=== PATIENT | female | born 1995 | race Caucasian/White ===

== ENCOUNTER 2017-03-15 00:32 | Emergency (ER) | payer OTHER ==
--- NOTE | 2017-03-15 00:59 | ED Physician Documentation ---
PD HPI BACK PAIN - Stated complaint Stated Complaint: BACK PAIN - Chief complaint Chief Complaint: Back Pain - History obtained from History obtained from: Patient - History of Present Illness Timing - onset: Other (tonight, few hours [employer]) Timing - duration: Hours Timing - details: Abrupt onset, Waxing and waning Pain level now: 10 Location: Mid, Right, Left Quality: Pain, Similar to prior episodes Associated symptoms: No: Fever, Weakness, Numbness Improves with: Nothing Worsened by: Other (no apparent exacerbating factors) Similar symptoms before: No diagnosis (similar but milder and briefer episodes over past 2-3 months. Was evaluated in an ED in [facility] approximately 2 months ago, had back xrays and prescribed flexeril.) Recently seen: Not recently seen Review of Systems Constitutional: denies: Fever Cardiac: reports: Reviewed and negative Respiratory: reports: Reviewed and negative GI: reports: Nausea, Vomiting. denies: Abdominal Pain : denies: Dysuria, Frequency Musculoskeletal: reports: Back pain PD PAST MEDICAL HISTORY - Past Medical History Past Medical History: Yes Musculoskeletal: Chronic back pain - Past Surgical History Past Surgical History: Yes - Present Medications Home Medications: Ambulatory Orders Medication Instructions Recorded Confirmed Bcp 03/15/17 Cyclobenzaprine [Flexeril] 1 tab PO DAILY 03/15/17 03/15/17 Multivitamin [Multivitamins] 1 cap PO DAILY 03/15/17 03/15/17 - Allergies Allergies/Adverse Reactions: Allergies Allergy/AdvReac Type Severity Reaction Status Date / Time Penicillins Allergy Unknown Verified 03/15/17 00:47 ibuprofen [From Advil] AdvReac Nausea Verified 03/15/17 00:47 - Social History Does the pt smoke?: No Smoking Status: Never smoker Does the pt drink ETOH?: No Does the pt have substance abuse?: No - Immunizations Immunizations are current?: Yes - POLST Patient has POLST: No PD ED PE NORMAL - Vitals Vital signs reviewed: Yes - General General: Alert and oriented X 3, No acute distress, Well developed/nourished - Cardiac Cardiac: RRR, No murmur - Respiratory Respiratory: No respiratory distress, Clear bilaterally - Abdomen Abdomen: Soft, Non tender, Non distended - Back Back: No CVA TTP - Derm Derm: Normal color, Warm and dry, No rash - Extremities Extremities: No edema Results - Vitals Vitals: Vital Signs - 24 hr 03/15/17 03/15/17 00:35 03:10 Temperature 35.9 C L 36.6 C Heart Rate 68 88 Respiratory 17 16 Rate Blood Pressure 96/62 116/79 O2 Saturation 100 97 Oxygen O2 Source Room air - Labs Labs: Laboratory Tests 03/15/17 03/15/17 03/15/17 01:30 01:30 01:35 WBC 11.0 H RBC 4.16 L Hgb 13.0 Hct 38.3 MCV 92.0 MCH 31.3 H MCHC 34.0 RDW 12.3 Plt Count 352 MPV 7.5 L Neut # 6.8 H Lymph # 3.3 [place] # 0.8 Eos # 0.1 Baso # 0.0 Absolute Nucleated RBC 0.00 Nucleated RBC % 0.0 Sodium 137 Potassium 3.3 L Chloride 104 Carbon Dioxide 23 Anion Gap 10.0 BUN 13 Creatinine 0.6 Estimated GFR (MDRD) 125 Glucose 135 H Calcium 8.8 Total Bilirubin 0.5 AST 80 H ALT 69 H Alkaline Phosphatase 50 Total Protein 7.9 Albumin 3.9 Globulin 4.0 Albumin/Globulin Ratio 1.0 Lipase 34 Urine Color DARK YELLOW Urine Clarity CLEAR Urine pH 6.0 Ur Specific [place] >=1.030 H Urine Protein NEGATIVE Urine Glucose (UA) NEGATIVE Urine Ketones NEGATIVE Urine Occult Blood NEGATIVE Urine Nitrite NEGATIVE Urine Bilirubin NEGATIVE Urine Urobilinogen 0.2 (NORMAL) Ur Leukocyte Esterase NEGATIVE Ur Microscopic Review NOT INDICATED Urine Culture Comments NOT INDICATED Urine HCG, Qual NEGATIVE - Rads (name of study) RUQ US Radiology: Prelim report reviewed, See rad report PD MEDICAL DECISION MAKING - ED course Complexity details: reviewed results, re-evaluated patient, considered differential, d/w patient Departure - Departure Disposition: 01 Home, Self Care Clinical Impression: Biliary colic Condition: Good Instructions: ED Gallstone W Biliary Colic Follow-Up: RAMYA Price [Provider Group] Aung Zavala MD [Provider Admit Priv/Credential] - Discharge Date/Time: 03/15/17 03:11
[2017-03-15 01:35] LABS: BASOPHILS % (AUTO) 0.3 %; EOSINOPHILS # (AUTO) 0.1 10^3/uL (0.0-0.7); EOSINOPHILS % (AUTO) 1.1 %; LYMPHOCYTES # (AUTO) 3.3 10^3/uL (1.5-3.5); LYMPHOCYTES % (AUTO) 29.9 %; MEAN CORPUSCULAR HEMOGLOBIN 31.3 pg (27.0-31.0); MEAN PLATELET VOLUME 7.5 fL (7.9-10.8); MONOCYTES # (AUTO) 0.8 10^3/uL (0.0-1.0); NEUTROPHILS # (AUTO) 6.8 10^3/uL (1.5-6.6); NEUTROPHILS % (AUTO) 61.7 %; PLT - PLATELET COUNT 352 10^3/uL (130-450); RED BLOOD COUNT 4.16 10^6/uL (4.20-5.40); RED CELL DISTRIBUTION WIDTH 12.3 % (12.0-15.0)
[2017-03-15 01:43] LABS: GLUCOSE, URINE (UA) NEGATIVE (NEGATIVE); KETONES,URINE (UA) NEGATIVE (NEGATIVE); LEUKOCYTE ESTERASE, URINE NEGATIVE (NEGATIVE); NITRITE,URINE NEGATIVE (NEGATIVE); OCCULT BLOOD,URINE NEGATIVE (NEGATIVE); PROTEIN,URINE NEGATIVE (NEGATIVE); UROBILINOGEN,URINE 0.2 (NORMAL) E.U./dL (NORMAL)
[2017-03-15 01:46] LABS: ALBUMIN 3.9 g/dL (3.2-5.5); BILIRUBIN,TOTAL 0.5 mg/dL (0.2-1.0); CALCIUM 8.8 mg/dL (8.5-10.3); CREATININE 0.6 mg/dL (0.4-1.0); TOTAL PROTEIN 7.9 g/dL (6.7-8.2)
[2017-03-15 01:47] LABS: BILIRUBIN,URINE NEGATIVE (NEGATIVE); CLARITY,URINE CLEAR (CLEAR); HCG UR QUAL NEGATIVE; ICTOTEST,URINE NEGATIVE
--- NOTE | 2017-03-15 02:30 | Ultrasound Preliminary Report ---
Exam: US ABDOMEN LIMITED IMPRESSION: 1. Mobile 1.6 cm stone in the gallbladder. No definite cholecystitis. 2. No biliary dilatation seen. 3. Enlarged fatty liver. [facility] SITE ID: [id number]
--- NOTE | 2017-03-15 02:30 | Ultrasound Report ---
EXAM: ABDOMEN ULTRASOUND LIMITED, RUQ EXAM DATE: 03/15/2017 02:18 AM. CLINICAL HISTORY: RUQ pain. COMPARISON: None. TECHNIQUE: Real-time scanning was performed with static images obtained. FINDINGS: Liver: Echogenic and heterogeneous. 19.4 cm. Main portal vein flow: Hepatopetal. Gallbladder: Mobile stone in the gallbladder measuring 1.6 cm. Wall thickness is normal at 2 mm. No f ocal tenderness over the gallbladder. Patient had been medicated. Biliary System: CBD measures 4 mm. No intrahepatic or extrahepatic ductal dilatation. Other: Right kidney measures 12.5 cm and appears normal. Pancreas is partially obscured. Visualized p ortions appear normal. IMPRESSION: 1. Mobile 1.6 cm stone in the gallbladder. No definite cholecystitis. 2. No biliary dilatation seen. 3. Enlarged fatty liver. [facility] Referring Provider Line: [phone] SITE ID: [id number]
[2017-03-15 03:11] VITALS: BP 116/79
== END 2017-03-15 03:11 | disposition home or self-care (01) ==
LOC: ED 00:32
DX: K80.20 Calculus of gallbladder without cholecystitis without obstruction (principal); K76.0 Fatty (change of) liver, not elsewhere classified
CPT/HCPCS: 36415; 76705; 80053; 81001; 81003; 81025; 83690; 85025; 87086; 99283

== ENCOUNTER 2017-04-24 07:27 | Day surgery (SDC) | payer OTHER ==
[2017-04-24] MEDS ORDERED: LACTATED RINGERS 1,000 ML IV ONE ×2 (07:37→10:13)
[2017-04-24] MEDS ORDERED: ceFAZolin 2 GM/50 ML 0 GM/0 ML BAG IV ONE (07:46)
[2017-04-24 08:05] LABS: HCG UR QUAL NEGATIVE
[2017-04-24] MEDS ORDERED: CLINDAMYCIN 600 MG/50 ML 50 ML IV ONE (08:26)
[2017-04-24] MEDS ORDERED: LIDOCAINE MPF 1%-EPI 1:200000 30 ML VIAL SUBQ ONE ×2 (09:01)
[2017-04-24] MEDS ORDERED: BUPIVACAINE 0.25% PF 30 ML VIAL SUBQ ONE ×2 (09:01)
[2017-04-24] MEDS ORDERED: DEXAMETHASONE 4 MG/ML VIAL IVP ONE (09:30)
[2017-04-24] MEDS ORDERED: MIDAZOLAM 2 MG/2 ML VIAL IVP ONE (09:30)
[2017-04-24] MEDS ORDERED: fentaNYL 100 MCG/2 ML VIAL IVP ONE (09:30)
[2017-04-24] MEDS ORDERED: LIDOCAINE-MPF 2% 5 ML VIAL IM ONE (09:30)
[2017-04-24] MEDS ORDERED: GLYCOPYRROLATE 1 MG/5 ML VIAL IVP ONE (09:30)
[2017-04-24] MEDS ORDERED: KETOROLAC 30 MG/ML VIAL IVP ONE (09:30)
[2017-04-24] MEDS ORDERED: ONDANSETRON 4 MG/2 ML VIAL IVP ONE (09:30)
[2017-04-24] MEDS ORDERED: ROCURONIUM 50 MG/5 ML VIAL IVP ONE (09:30)
[2017-04-24] MEDS ORDERED: NEOSTIGMINE 1 MG/1 ML 10 ML MDV IVP ONE (09:30)
[2017-04-24] MEDS ORDERED: diphenhydrAMINE INJ 50 MG/ML VIAL IVP ONE (09:30)
[2017-04-24] MEDS ORDERED: ACETAMINOPHEN 1,000 MG/100 ML 100 ML IV ONE (09:30)
[2017-04-24] MEDS ORDERED: PROPOFOL 200 MG/20 ML VIAL IVP ONE (09:30)
--- NOTE | 2017-04-24 10:07 | OPERATIVE REPORT ---
Operative Report - General Planned Procedure: lap staci Pre-Op Diagnosis: biliary colic Procedure Performed: lap staci, TAP block - Other Other Information/Narrative: Procedure Performed: Laparoscopic cholecystectomy, TAP block Preoperative diagnosis: Biliary Colic Postoperative diagnosis: Biliary Colic Indication for procedure: This is a 21 year old presenting with signs and symptoms consistent with biliary colic. Anesthesia: General Surgeon: Dr. Kaminski Findings: After obtaining informed consent the patient was brought into the operating room and positioned on the operating table in the supine position taking noted pressure points. The patient was intubated by anesthesia. Perioperative antibiotics were administered. The patient was then prepped and draped in the usual sterile fashion and a timeout was taken according to protocol. An infraumbilical 1 cm incision was created and deepened down to the umbilical stalk. The stalk was grasped and elevated and the veres needle inserted. The abdominal cavity was insufflated. A 5 mm incision was created in the patient's epigastric region to the right of the midline. Using a 5 mm Optiview trocar the abdominal cavity was entered. The Veress needle was removed and exchanged for a 12 mm port. 2 additional 5 mm ports were then placed along the patient's right lateral abdominal wall. The gallbladder was grasped and retracted over the dome of the liver. The right lobe of the liver was noted to be adherent to the underlying omentum. The gallbladder was minimally inflamed. The fundus of the gallbladder was grasped and retracted medially exposing the lateral attachments. The lateral attachments were carefully taken down working my way laterally to medially exposing the cystic duct. The cystic duct was circumferentially dissected free from surrounding fatty tissue. The cystic artery was similarly dissected out. The base of the gallbladder was dissected off of the liver bed and the critical view was obtained. The cystic duct was clipped with 2 clips placed proximally 1 distally and divided. The cystic artery was divided in a similar manner. The gallbladder was then removed from the gallbladder fossa with electrocautery. Prior to complete excision of the gallbladder the fossa was inspected for bleeding and there was some bleeding from the fatty tissue adjacent to the cystic artery. This appeared to be a posterior cystic branch and it was clipped. A few areas on the fossa were cauterized and hemostasis was achieved. There was no spillage of bile and stones during the process of gallbladder removal. The gallbladder was then placed in a specimen bag and removed. The fascial incision was extended slightly with a blunt clamp to accommodate the gallbladder. 20 cc of marcaine was then injected at the costal margin intraperitoneally performing a TAP block. The umbilical incision was then closed using the Darrick Amin device and a [id number] 0 Vicryl suture . The abdominal cavity was then allowed to desufflate and all trochars were removed. The skin incisions were closed with 4-0 Monocryl. The patient was subsequently extubated and taken to the recovery room in stable condition. Estimated blood loss: Minimal Complications: None Specimen: Gallbladder
[2017-04-24] MEDS ORDERED: KETOROLAC 30 MG/ML VIAL ONE (10:13)
[2017-04-24] MEDS: fentaNYL 100 MCG/2 ML VIAL ONE ×2 (10:31→10:41)
[2017-04-24] MEDS ORDERED: oxyCOD/ACETAMIN 5 MG/325 MG TABLET PO ONE (11:19)
[2017-04-24 11:35] VITALS: BP 115/72
== END 2017-04-24 07:28 | disposition home or self-care (01) ==
LOC: SDS 07:27
PROVIDERS: ATTEND Surgery
PROC: 0FT44ZZ Resection of Gallbladder, Percutaneous Endoscopic Approach (ICD-10-PCS; principal; 2017-04-24 08:37)
DX: K80.10 Calculus of gallbladder with chronic cholecystitis without obstruction (principal); J45.909 Unspecified asthma, uncomplicated
CPT/HCPCS: 47562; 81025; A9270; J0131; J7120

== ENCOUNTER 2021-07-26 13:30 | Emergency (ER) | payer OTHER, MEDICAID ==
[2021-07-26 13:54] VITALS: BP 138/100
--- NOTE | 2021-07-26 14:13 | ED Physician Documentation ---
PD HPI BACK PAIN - Stated complaint Stated Complaint: BACK PX - Chief complaint Chief Complaint: Back Pain - History obtained from History obtained from: Patient - Additional information Additional information: 26-year-old woman has had fairly constant left-sided mid back pain for the last week. It is worse with bending and twisting. It started after a couple of long car rides. She denies shortness of breath, pedal edema or calf pain. No urinary complaints. No fevers. Pain is sharp. Somewhat random but again usually worse with bending or twisting and better with either standing or laying still. She declines pain medication on initial evaluation. She points just above the left flank as the site of pain. Past medical history is notable for gastric sleeve, cholecystectomy, and PCOS. Review of Systems Constitutional: denies: Fever, Chills, Fatigue Cardiac: denies: Chest pain / pressure, Palpitations Respiratory: denies: Dyspnea, Cough PD PAST MEDICAL HISTORY - Past Medical History Cardiovascular: None Respiratory: Asthma, Sleep apnea Endocrine/Autoimmune: None GI: Cholelithiasis, Other : None HEENT: Chronic vision loss Psych: Depression, Anxiety Musculoskeletal: Chronic back pain Derm: None - Past Surgical History Past Surgical History: Yes General: Gastric surgery Derm: Other - Present Medications Home Medications: Ambulatory Orders Medication Instructions Recorded Confirmed Multivitamin [Multivitamins] 1 cap PO DAILY 03/15/17 04/24/17 Ethynodiol D-Ethinyl Estradiol 1 tab PO DAILY 04/21/17 04/24/17 [Zovia 1-35E Tablet] Cyclobenzaprine [Flexeril] 10 mg PO TID PRN #20 tablet 07/26/21 - Allergies Allergies/Adverse Reactions: Allergies Allergy/AdvReac Type Severity Reaction Status Date / Time Penicillins Allergy Unknown Verified 07/26/21 13:54 ibuprofen [From Advil] AdvReac Nausea Verified 07/26/21 13:54 - Social History Does the pt smoke?: No Smoking Status: Never smoker Does the pt drink ETOH?: No Does the pt have substance abuse?: No - Immunizations Immunizations are current?: Yes - POLST Patient has POLST: No PD ED PE NORMAL - Vitals Vital signs reviewed: Yes (Mild resting tachycardia) - General General: Alert and oriented X 3, No acute distress - Neck Neck: Supple, no meningeal sign, No bony TTP - Cardiac Cardiac: RRR, No murmur - Respiratory Respiratory: No respiratory distress, Clear bilaterally - Abdomen Abdomen: Non tender - Back Back: No CVA TTP, No spinal TTP - Derm Derm: Normal color, Warm and dry - Extremities Extremities: No edema, No calf tenderness / cord - Neuro Neuro: Alert and oriented X 3, Normal speech Results - Vitals Vitals: Vital Signs - 24 hr 07/26/21 13:48 Temperature 36.6 C Heart Rate 107 H Respiratory 14 Rate Blood Pressure 138/100 H O2 Saturation 98 Oxygen O2 Source Room air - Labs Labs: Laboratory Tests 07/26/21 07/26/21 07/26/21 13:55 14:16 14:37 WBC 7.8 RBC 4.12 L Hgb 12.8 Hct 38.8 MCV 94.2 MCH 31.1 H MCHC 33.0 RDW 12.9 Plt Count 396 MPV 9.0 Neut # (Auto) 3.0 Lymph # (Auto) 4.0 H [place] # (Auto) 0.5 Eos # (Auto) 0.2 Baso # (Auto) 0.0 Absolute Nucleated RBC 0.00 Nucleated RBC % 0.0 D-Dimer Sodium 137 Potassium 3.8 Chloride 101 Carbon Dioxide 25 Anion Gap 11.0 BUN 9 Creatinine 0.8 Estimated GFR (MDRD) 86 L Glucose 102 H Calcium 8.8 Urine Color YELLOW Urine Clarity CLEAR Urine pH 7.0 Ur Specific [place] 1.015 Urine Protein NEGATIVE Urine Glucose (UA) NEGATIVE Urine Ketones NEGATIVE Urine Occult Blood NEGATIVE Urine Nitrite NEGATIVE Urine Bilirubin NEGATIVE Urine Urobilinogen 0.2 (NORMAL) Ur Leukocyte Esterase NEGATIVE Ur Microscopic Review NOT INDICATED Urine Culture Comments NOT INDICATED Urine HCG, Qual NEGATIVE 07/26/21 14:37 WBC RBC Hgb Hct MCV MCH MCHC RDW Plt Count MPV Neut # (Auto) Lymph # (Auto) [place] # (Auto) Eos # (Auto) Baso # (Auto) Absolute Nucleated RBC Nucleated RBC % D-Dimer < 200.0 L Sodium Potassium Chloride Carbon Dioxide Anion Gap BUN Creatinine Estimated GFR (MDRD) Glucose Calcium Urine Color Urine Clarity Urine pH Ur Specific [place] Urine Protein Urine Glucose (UA) Urine Ketones Urine Occult Blood Urine Nitrite Urine Bilirubin Urine Urobilinogen Ur Leukocyte Esterase Ur Microscopic Review Urine Culture Comments Urine HCG, Qual PD MEDICAL DECISION MAKING - ED course ED course: 26-year-old woman presents with back pain which sounds muscular given that it is worse with movement and bending etc., but the combination of recent travel and resting tachycardia suggested a D-dimer might be helpful to rule out thromboembolic disease. Given the location and recent travel PE was considered but D-dimer negative. Also urinalysis normal making renal colic or pyelonephritis very unlikely. Departure - Departure Disposition: Home, Self Care Clinical Impression: Back pain Condition: Good Record reviewed to determine appropriate education?: Yes Instructions: ED Spasm Back No Trauma Prescriptions: Cyclobenzaprine [Flexeril] 10 mg PO TID PRN #20 tablet PRN Reason: Spasms Comments: I sent your prescription electronically to [facility] in [place]. Do not drink or drive while taking prescription muscle relaxers. You can take ibuprofen in addition to that for pain. Return for new or worsening symptoms. Follow-up with your doctor at the end of the week if not better.
[2021-07-26 14:25] LABS: BASOPHILS % (AUTO) 0.5 %; EOSINOPHILS # (AUTO) 0.2 10^3/uL (0.0-0.7); EOSINOPHILS % (AUTO) 2.8 %; HCT - HEMATOCRIT 38.8 % (37.0-47.0); HGB - HEMOGLOBIN 12.8 g/dL (12.0-16.0); LYMPHOCYTES % (AUTO) 52.1 %; MEAN CORPUSCULAR HEMOGLOBIN 31.1 pg (27.0-31.0); MEAN CORPUSCULAR VOLUME 94.2 fL (81.0-99.0); MONOCYTES # (AUTO) 0.5 10^3/uL (0.0-1.0); MONOCYTES % (AUTO) 6.4 %; NEUTROPHILS % (AUTO) 38.1 %; PLT - PLATELET COUNT 396 10^3/uL (130-450); RED BLOOD COUNT 4.12 10^6/uL (4.20-5.40); RED CELL DISTRIBUTION WIDTH 12.9 % (12.0-15.0); WHITE BLOOD COUNT 7.8 x10^3/uL (4.8-10.8)
[2021-07-26 14:39] LABS: BILIRUBIN,URINE NEGATIVE (NEGATIVE); GLUCOSE, URINE (UA) NEGATIVE (NEGATIVE); KETONES,URINE (UA) NEGATIVE (NEGATIVE); LEUKOCYTE ESTERASE, URINE NEGATIVE (NEGATIVE); NITRITE,URINE NEGATIVE (NEGATIVE); OCCULT BLOOD,URINE NEGATIVE (NEGATIVE); PROTEIN,URINE NEGATIVE (NEGATIVE); UROBILINOGEN,URINE 0.2 (NORMAL) E.U./dL (NORMAL)
[2021-07-26 14:42] LABS: CLARITY,URINE CLEAR (CLEAR)
[2021-07-26 14:43] LABS: HCG UR QUAL NEGATIVE
[2021-07-26 14:51] LABS: CALCIUM 8.8 mg/dL (8.5-10.3); CREATININE 0.8 mg/dL (0.4-1.0); POTASSIUM 3.8 mmol/L (3.5-5.0)
== END 2021-07-26 15:00 | disposition home or self-care (01) ==
LOC: ED 13:30
DX: M54.6 Pain in thoracic spine (principal)
CPT/HCPCS: 36415; 80048; 81001; 81003; 81025; 85025; 85379; 87086; 99282; 99283